=== PATIENT | male | born 1940 | race Caucasian/White ===

== ENCOUNTER 2016-09-29 13:02 | Inpatient (IN) | payer MEDICARE, BC ==
[~2016-09-29] VITALS: Ht 175.3 cm; Wt 112.7 kg
[2016-10-19] MEDS ORDERED: POTA4.25 PO (16:06)
[2016-10-19] MEDS ORDERED: ALLO100T PO (16:06)
[2016-10-19] MEDS ORDERED: AMLO2.5T PO (16:06)
[2016-10-19] MEDS ORDERED: LOVA20TA PO (16:06)
[2016-10-19] MEDS ORDERED: CITA10TA4 PO (16:06)
[2016-10-19] MEDS ORDERED: ASPI-110 PO (16:06)
[2016-10-19] MEDS ORDERED: ZOLP10TA3 PO (16:06)
[2016-11-04] MEDS ORDERED: SODIUM CHLORID 0.9% 500 ML IV SCH (06:45)
[2016-11-04] MEDS ORDERED: METOPROLOL TARTRATE 25 MG TAB PO PRN (06:45)
[2016-11-04] MEDS ORDERED: INSULIN HUMAN REGULAR 1,000 UNITS/10 ML VIAL SQ PRN (06:45)
[2016-11-04] MEDS ORDERED: LACTATED RINGER'S 1000 ML IV SCH (06:45)
--- NOTE | 2016-11-04 07:02 | HHI.DCPOC ---
Discharge Care Plan Diagnosis: (1) Status post total knee replacement, left (2) Primary localized osteoarthrosis, lower leg Your Health Problems Are: Difficulty with ADL Goals to Promote Your Health * To prevent worsening of your condition and complications * To maintain your health at the optimal level Directions to Meet Your Goals Take your medications as prescribed Follow your dietary instruction Follow activity as directed Keep your appointments as scheduled Take your immunizations and boosters as scheduled If your symptoms worsen call your PCP, if no PCP go to Urgent Care Center or Emergency Room Smoking is Dangerous to Your Health. Avoid second hand smoke Call the 24-hour hour crisis hotline for domestic abuse at Mario Hensley Nov 04, 2016 07:02
--- NOTE | 2016-11-04 07:02 | HHI.FF ---
Face to Face Verification Diagnosis: (1) Status post total knee replacement, left (2) Primary localized osteoarthrosis, lower leg Physical Therapy Gait training, Transfer training, bed to chair Knee: Total knee Left LE Weight Bearing: WB as tolerated Left LE Range of Motion: Active ROM Nursing Nursing: Lj teaching, Dressing changes Dressing Changes: Daily dressing change I have seen patient Mango Parker Jr on 11/04/16. My clinical findings support the need for the requested home health care services because: Limited ability to care for self High risk of falls I certify that my clinical findings support that this patient is homebound because: Post-op weakness Unsteady gait/balance Mario Hensley Nov 04, 2016 07:02
[2016-11-04] MEDS ORDERED: COMMODE 3-IN-11 MIS (07:03)
[2016-11-04] MEDS ORDERED: CPMMACHINE (07:03)
[2016-11-04] MEDS ORDERED: WALKER WHEELS/F1 MIS (07:03)
[2016-11-04 08:00] VITALS: BP 170/90; PULSE 84; RESP 20; TEMP 97.9; O2SAT 96
[2016-11-04] MEDS ORDERED: BUPIVACAINE LIPOSOME PF 1.3% 20 ML VIAL ONE (08:01)
[2016-11-04] MEDS ORDERED: DEXAMETHASONE SOD PHOS 20 MG/5 ML VIAL ONE (08:16)
[2016-11-04] MEDS ORDERED: SODIUM CHLORIDE 0.9% INJ 100 ML ONE ×2 (08:16→16:32)
[2016-11-04] MEDS ORDERED: SODIUM CHLOR 0.9% 250 ML INJ 250 ML ONE (08:16)
[2016-11-04] MEDS ORDERED: ceFAZolin INJ 1,000 MG VIAL ONE (08:16)
[2016-11-04] MEDS ORDERED: VANCOMYCIN HCL 1000 MG VIAL ONE (08:16)
[2016-11-04 08:32] LABS: AUTOMATED NEUTROPHIL # 6.7 TH/MM3 (1.8-7.7); BASOPHIL % 0.3 % (0.0-2.0); EOSINOPHIL % 0.1 % (0.0-4.0); HEMATOCRIT 43.5 % (39.0-51.0); HEMO FLAGS DIFF FINAL; LYMPH % 12.5 % (9.0-44.0); MEAN CELL VOLUME 95.3 FL (80.0-100.0); MEAN CORPUSCULAR HGB CONC 34.6 % (32.0-36.0); MONO % 6.3 % (0.0-8.0); NEUT % 80.8 % (16.0-70.0); PLATELET COUNT 220 TH/MM3 (150-450); RED BLOOD COUNT 4.56 MIL/MM3 (4.50-5.90); RED CELL DISTRIBUTION WIDTH 13.2 % (11.6-17.2); WHITE BLOOD COUNT 8.3 TH/MM3 (4.0-11.0)
[2016-11-04 08:47] LABS: ANION GAP 8 MEQ/L (5-15); AST (GOT) 13 U/L (15-37); BICARBONATE 27.7 MEQ/L (21.0-32.0); BLOOD UREA NITROGEN 14 MG/DL (7-18); CHLORIDE 103 MEQ/L (98-107); GLOMERULAR FILTRATION RATE 67 ML/MIN (>89); POTASSIUM 4.3 MEQ/L (3.5-5.1); SODIUM (NA) 139 MEQ/L (136-145)
[2016-11-04 08:50] LABS: ALKALINE PHOSPHATASE 80 U/L (45-117); ALT (GPT) 25 U/L (12-78); TOTAL BILIRUBIN ADULT 0.5 MG/DL (0.2-1.0)
[2016-11-04] MEDS ORDERED: MIDAZOLAM HCL 2 MG/2 ML VIAL ONE (09:08)
[2016-11-04] MEDS ORDERED: METOCLOPRAMIDE HCL 10 MG/2 ML VIAL ONE (09:08)
[2016-11-04] MEDS ORDERED: FAMOTIDINE 20 MG/2 ML VIAL ONE (09:08)
[2016-11-04] MEDS ORDERED: GENTAMICIN SULFATE 80 MG/2 ML VIAL ONE (09:17)
[2016-11-04] MEDS: POVIDONE IODINE 7.5% SCRUB 118 ML BOTTLE TOP SCH (09:30)
[2016-11-04] MEDS: TRANEXAMIC ACID IV SCH ×2 (09:30→10:28)
[2016-11-04] MEDS: SODIUM CHLORIDE 0.9% IV SCH ×2 (09:30→10:28)
[2016-11-04] MEDS ORDERED: VANCOMYCIN 1000 MG/NS 250 ML (for <70 kg) IV SCH ×2 (09:30)
[2016-11-04] MEDS ORDERED: ceFAZolin 2 GM PREMIX 50 ML IV SCH (09:30)
[2016-11-04] MEDS ORDERED: ACETAMINOPHEN 1000 MG/100 ML VIAL IV ONE (09:59)
[2016-11-04] MEDS ORDERED: DEXAMETHASONE SOD PHOS 20 MG/5 ML VIAL IV SCH (10:00)
[2016-11-04] MEDS: ROPIVACAINE PERI-ARTICULAR INJECTION. PERIART SCH ×10 (10:00→10:50)
--- NOTE | 2016-11-04 11:57 | PD.OP ---
cc: Valentino Rogers MD Operative Report Date of Surgery: Nov 04, 2016 Preoperative Diagnosis: Left knee severe osteoarthritis Postoperative Diagnosis: Same Procedure: Left total knee arthroplasty Anesthesia: Adductor canal block and general Surgeon: Valentino Rogers Tube Worker(s): SIDRA Amador The surgical procedure was assisted by my Advanced Registered Nurse Practitioner. My AIRCRAFT INSTRUMENT MECHANIC presence was necessary throughout this case for the manipulation and positioning of the surgical extremity. My AIRCRAFT INSTRUMENT MECHANIC was assisting me throughout the duration of this procedure. The skill set of an Advance Registered Nurse Practitioner was medically necessary to complete this procedure. During the surgical case, the surgical dressing maker was working at the back table and the Advance Registered Nurse Practitioner was directly assisting me. Operation and Findings: IMPLANTS: DePuy Attune: Patella: size 38. Femur, posterior stabilized size 8. Tibia, rotating platform size 7. Tibial insert, rotating platform, posterior stabilized size 6 mm thickness. ESTIMATED BLOOD LOSS: 250 cc TOURNIQUET TIME: 44 minutes at 300 mmHg pressure. JUSTIFICATION FOR PROCEDURE: The patient has end-stage osteoarthritis to the knee. There is an attached conservative measures pathway form in the chart that describes the nonoperative measures that were undertaken prior to consideration of surgical management. The patient understood the risks and benefits of surgical management. See my office notes for further details PROCEDURE: The patient was brought back to the operative theatre. Adequate anesthesia was obtained. The patient received intravenous vancomycin and Ancef. The lower extremity was prepped and draped in the usual sterile fashion.The leg was exsanguinated, the tourniquet was raised. A standard anterior incision was performed followed by medial parapatellar arthrotomy was performed. End-stage arthritis was identified. Osteotomy of the patella was performed. We drilled holes for the patella. We trialed the patella component. We placed an intramedullary guide into the distal femur. We ultimately resected 14 mm off of the distal femur in 5 degrees of valgus. The remnants of the ACL and PCL were resected. Osteotomy of the proximal tibia was performed, resecting 5 mm off of the medial side. This was done with 3 degrees of posterior slope using an extramedullary guide. The distal end of the guide was placed in the mid aspect of the ankle. The femur was sized, and four chamfer cuts were completed in 3 of external rotation. We then cut the central box in the distal femur to replace the PCL. We resected the remnants of the menisci and removed osteophytes off of the femur and tibia. We then trialed the knee. We punched the tibia for the keel, and then used standard technique to cement in components. Excess cement was removed. We trialed the knee again and the final polyethylene thickness was chosen to provide extension to 0 degrees, and flexion of 140 degrees to gravity. The ligaments were appropriately balanced. Lateral release was necessary to obtain excellent patellofemoral tracking. The tourniquet was released and adequate hemostasis was obtained. An intra- articular injection of a ropivacaine cocktail was injected. The posterior knee was inspected for excess cement, which was removed. The final polyethylene was put into position after thorough irrigation. We then closed deep fascia with a #2 Stratafix followed by skin with 2-0 Vicryl followed by cosmo. Postop plan is to weight-bear as tolerated. DVT prophylaxis will be performed with Anne Marie, TEDDY dumont, early mobilization, and Lovenox followed by aspirin. Valentino Rogers MD Nov 04, 2016 11:57
[2016-11-04] MEDS ORDERED: ENOX40P SQ (11:58)
[2016-11-04] MEDS ORDERED: NORC5TAB PO (11:58)
[2016-11-04] MEDS ORDERED: ASPI325T PO (11:58)
[2016-11-04] MEDS ORDERED: ONDANSETRON HCL 4 MG/2 ML VIAL IVP PRN (12:00)
[2016-11-04] MEDS ORDERED: ALUMINUM/MAGNESIUM/SIMETH 30 ML CUP PO PRN (12:00)
[2016-11-04] MEDS ORDERED: MAGNESIUM HYDROXIDE SUSP 30 ML CUP PO PRN (12:00)
[2016-11-04] MEDS ORDERED: diphenhydrAMINE HCL 50 MG/ML VIAL IV PRN (12:00)
[2016-11-04] MEDS ORDERED: LACTATED RINGER'S 1000 ML INJ 1,000 ML IV ONE (12:00)
[2016-11-04] MEDS ORDERED: ONDANSETRON HCL 4 MG/2 ML VIAL IV PUSH ONE (12:00)
[2016-11-04] MEDS ORDERED: NALOXONE HCL 0.4 MG/ML AMP IV PRN (12:00)
[2016-11-04] MEDS ORDERED: SODIUM CHLORIDE 0.9% FLUSH 5 ML FLUSH IVF PRN (12:00)
[2016-11-04] MEDS ORDERED: ZOLPIDEM TARTRATE 5 MG TAB PO PRN (12:00)
[2016-11-04] MEDS ORDERED: BISACODYL 10 MG SUPP PR PRN (12:00)
[2016-11-04] MEDS ORDERED: MORPHINE SULFATE 4 MG/ML INJ IV PUSH PRN (12:00)
[2016-11-04] MEDS ORDERED: Post-op Orders (for Pharmacy) MISC XX ONE (12:00)
[2016-11-04] MEDS ORDERED: PROPOFOL 200 MG/20 ML AMP IV ONE (12:00)
[2016-11-04] MEDS ORDERED: fentaNYL CITRATE 250 MCG/5 ML AMP ONE (12:25)
[2016-11-04] MEDS ORDERED: *morphine SULFATE 8 MG/ML PERIprocedure ONLY ONE ×2 (12:26→12:30)
[2016-11-04] MEDS ORDERED: PILL SPLITTER OTHER PRN (12:30)
[2016-11-04] MEDS ORDERED: *ENALAPRILAT 1.25 MG/ML VIAL PERIprocedural Use ONLY ONE ×2 (12:33→12:54)
[2016-11-04] MEDS: SODIUM CHLOR 0.9% 1000 ML INJ 1,000 ML IV SCH ×2 (13:00→20:39)
[2016-11-04] MEDS ORDERED: TRANEXAMIC ACID INJ 1,107 MG in SODIUM CHLORIDE 0.9% INJ 100 ML IV SCH (13:00)
--- NOTE | 2016-11-04 13:54 | RADRPT ---
EXAM DATE/TIME: 11/04/2016 12:56 [facility] COMPARISON: No previous studies available for comparison. INDICATIONS : Post-op total left knee arthroplasty. MEDICAL HISTORY : Hypertension. SURGICAL HISTORY : Arthroscopy. Left shoulder surgery. ENCOUNTER: Initial ACUITY: 1 day PAIN SCORE: 0/10 LOCATION: Left knee. FINDINGS: AP and lateral views of the left knee demonstrate changes consistent with recent total knee arthropla sty with metallic hardware in place in the distal femur and proximal tibia. There is a radiolucent pa tellar component. Skin cosmo are present anteriorly. There is soft tissue gas present, as expected. CONCLUSION: Expected findings are present following recent total knee arthroplasty. Mango Duke MD on November 04, 2016 at 13:52 Board Certified Radiologist. This report was verified electronically.
[2016-11-04 17:33] VITALS: BP 145/82; PULSE 76; RESP 18; TEMP 96.6; O2SAT 93
[2016-11-04 20:08] VITALS: BP 115/68; PULSE 80; RESP 21; TEMP 97.8; O2SAT 96
[2016-11-04] MEDS: SODIUM CHLORIDE 0.9% FLUSH 5 ML FLUSH IVF SCH (20:40)
[2016-11-04] MEDS: ACETAMINOPHEN/HYDROcodone 325 MG/5 MG TAB PO PRN (20:40)
[2016-11-04] MEDS ORDERED: CITALOPRAM HYDROBROMIDE 20 MG TAB PO SCH (21:00)
[2016-11-04] MEDS ORDERED: PRAVASTATIN SOD 20 MG TAB PO SCH (21:00)
[2016-11-04] MEDS ORDERED: ZOLPIDEM TARTRATE 10 MG TAB PO PRN (21:00)
[2016-11-04] MEDS ORDERED: ALLOPURINOL 100 MG TAB PO SCH (21:00)
[2016-11-05 00:11] VITALS: BP 112/67; PULSE 77; RESP 20; TEMP 98.7; O2SAT 97
[2016-11-05] MEDS: ACETAMINOPHEN/HYDROcodone 325 MG/5 MG TAB PO PRN ×4 (02:06→15:22)
[2016-11-05 04:08] VITALS: BP 138/78; PULSE 80; RESP 20; TEMP 97.1; O2SAT 96
[2016-11-05 05:08] LABS: HEMATOCRIT 37.9 % (39.0-51.0); MEAN CELL VOLUME 97.2 FL (80.0-100.0); MEAN CORPUSCULAR HEMOGLOBIN 32.5 PG (27.0-34.0); MEAN CORPUSCULAR HGB CONC 33.4 % (32.0-36.0); PLATELET COUNT 183 TH/MM3 (150-450); RED CELL DISTRIBUTION WIDTH 13.7 % (11.6-17.2); REVIEW FLAG FINAL; WHITE BLOOD COUNT 10.7 TH/MM3 (4.0-11.0)
[2016-11-05] MEDS: SODIUM CHLOR 0.9% 1000 ML INJ 1,000 ML IV SCH ×2 (07:34→11:35)
[2016-11-05] MEDS ORDERED: DEXAMETHASONE SOD PHOS 20 MG/5 ML VIAL IV ONE (07:45)
[2016-11-05 08:08] VITALS: BP 169/103; PULSE 82; RESP 20; TEMP 99; O2SAT 96
[2016-11-05] MEDS ORDERED: amLODIPine BESYLATE 5 MG TAB PO SCH (09:00)
[2016-11-05] MEDS: SODIUM CHLORIDE 0.9% FLUSH 5 ML FLUSH IVF SCH (09:00)
[2016-11-05] MEDS: POVIDONE IODINE 7.5% SCRUB 118 ML BOTTLE TOP SCH (09:30)
[2016-11-05] MEDS ORDERED: ENOXAPARIN SODIUM 40 MG/0.4 ML SYRINGE SQ SCH (11:00)
[2016-11-05 12:15] VITALS: BP 189/90; PULSE 89; RESP 20; TEMP 98.4; O2SAT 97
--- NOTE | 2016-11-05 12:32 | PD.ORT.PN ---
Subjective Post Op Day #: 1 Subjective Remarks The patient is OOB in chair with minimal pain. Patient is requesting to go home today with home health. Family at bedside. Objective Vitals Vital Signs Date Time Temp Pulse Resp B/P Pulse Ox O2 Delivery O2 Flow Rate FiO2 11/05/16 08:08 99.0 82 20 169/103 96 11/05/16 04:08 97.1 80 20 138/78 96 11/05/16 00:11 98.7 77 20 112/67 97 11/04/16 20:08 97.8 80 21 115/68 96 11/04/16 19:07 Room Air 11/04/16 17:33 96.6 76 18 145/82 93 11/04/16 16:55 Room Air 11/04/16 16:30 98.5 70 17 159/89 96 Room Air 11/04/16 16:00 78 17 152/86 95 Room Air 11/04/16 15:30 77 17 119/79 97 Nasal Cannula 2 11/04/16 15:00 76 17 140/87 97 Nasal Cannula 2 11/04/16 14:45 70 17 159/89 98 Nasal Cannula 2 11/04/16 14:00 83 17 147/80 98 Nasal Cannula 2 11/04/16 13:30 87 17 143/86 98 Nasal Cannula 2 11/04/16 13:15 85 16 160/90 98 Nasal Cannula 2 11/04/16 13:00 87 16 165/87 98 Nasal Cannula 4 11/04/16 12:45 84 16 175/96 98 Nasal Cannula 4 11/04/16 12:30 81 15 174/105 100 Nasal Cannula 4 I/O 11/04/16 11/04/16 11/04/16 11/05/16 11/05/16 11/05/16 07:00 15:00 23:00 07:00 15:00 23:00 Intake Total 2000 ml 1325 ml 1111 ml 328 ml Output Total 550 ml 300 ml 300 ml Balance 1450 ml 1025 ml 811 ml 328 ml Intake Oral 360 ml 240 ml IV Total 600 ml 965 ml 871 ml 328 ml Other 1400 ml Output Urine Total 350 ml 300 ml 300 ml Estimated Blood Loss 200 ml # Bowel Movements 0 0 Result Diagram: 11/05/16 0442 11/04/16 0810 Procedures Left TKA Objective Remarks The patient's dressing was changed with scant serosanguineous drainage. Incision is well approximated with surgical clips intact. No redness or s/s of infection. EHL/TA/G intact. 2+ pedal pulse. Calf is soft and nontender. Mild swelling. + SILT. Assessment & Plan Ortho Post Op Day #: 1 Problem List: Assessment and Plan POD #1: Left TKA 1. WBAT LLE 2. Lovenox for DVT prophylaxis 3. Ice to the left knee PRN 4. Stable for discharge home with home health today. Mario Hensley Nov 05, 2016 12:32
[2016-11-05 15:17] VITALS: BP 164/86
[2016-11-05] MEDS ORDERED: MULTIVITAMINS/MINERALS THERAPEUTIC TAB PO SCH (21:00)
[2016-11-05] MEDS ORDERED: DOCUSATE SODIUM 100 MG CAP PO SCH (21:00)
[2016-11-06] MEDS ORDERED: POTASSIUM CITRATE 10 MEQ PO SCH (09:00)
--- NOTE | 2016-11-08 21:33 | HHI.DS ---
Discharge Summary Admission Date Nov 04, 2016 at 06:12 Discharge Date: Nov 05, 2016 Admitting Diagnosis Primary localized OA, lower leg Status post total knee replacement, left Diagnosis: (1) Primary localized osteoarthrosis, lower leg Diagnosis: Principal (2) Status post total knee replacement, left Diagnosis: Principal Procedures Left TKA Brief History This is a 76 year old male patient with severe OA of the left knee CBC/BMP: 11/05/16 0442 11/04/16 0810 PE at Discharge The patient's dressing was changed with scant serosanguineous drainage. Incision is well approximated with surgical clips intact. No redness or s/s of infection. EHL/TA/G intact. 2+ pedal pulse. Calf is soft and nontender. Mild swelling. + SILT. Hospital Course The patient was admitted to the hospital for severe OA of the left knee to have a left TKA. The patient's surgery went well with no complications. The patient is WBAT on the right LE. The patient is on a regular diet. The patient is on blood thinners for DVT prophylaxis. The patient was discharged home with home health and will f/u with Dr. Rogers in 1-2 weeks. Pt Condition on Discharge: Stable Discharge Disposition: Disch w/ Home Health Serv Discharge Instructions Diet Instructions: As Tolerated, No Restrictions Activities You Can Perform: Weight Bearing as Tay[place] Activities to Avoid: Strenuous Activity Follow up Referrals: Orthopedics with Valentino Rogers MD New Medications: Aspirin (Aspirin) 325 Mg Tab 325 MG PO DAILY Start Aspirin after Lovenox is completed. Prevent Blood Clot # 30 Ref 0 TAB Commode 3-in-1 (Commode 3-in-1) 1 Mis Mis 1 EA .ROUTE DIRECTED #1 Ref 0 EA CPM-Continuous Passive Motion Machine (CPM-Continuous Passive Motion Machine) 1 Ea Device 1 EA .ROUTE DIRECTED #1 Ref 0 EA Enoxaparin Inj (Lovenox Inj) 40 Mg/0.4 Ml Syr 40 MG SQ DAILY Start Aspirin after Lovenox is completed. Blood Clot Prevention # 10 Ref 0 SYRINGE Hydrocodone-Acetaminophen ([place]) 5-325 mg Tab 1-2 TAB PO Q4H PRN PAIN #60 Ref 0 TAB Walker with Front Wheels (Walker with Front Wheels) 1 Mis Mis 1 EA .ROUTE DIRECTED #1 Ref 0 EA Continued Medications: Allopurinol (Allopurinol) 100 Mg Tab 150 MG PO HS Gout #30 Ref 0 TAB Amlodipine (Amlodipine) 2.5 Mg Tab 2.5 MG PO DAILY Blood Pressure Management #30 Ref 0 TAB Citalopram (Citalopram) 10 Mg Tab 10 MG PO HS Control Depression #30 Ref 0 TAB Lovastatin (Lovastatin) 20 Mg Tab 20 MG PO HS Cholesterol Management #30 Ref 0 TAB Potassium Citrate ER (Potassium Citrate ER) 15 Meq Tab 10 MEQ PO EVERY OTHER DAY Zolpidem (Zolpidem) 10 Mg Tab 10 MG PO HS PRN INSOMNIA Ref 0 TAB Discontinued Medications: Aspirin DR (Aspirin 81) 81 Mg Tabdr 81 MG PO DAILY Ref 0 TAB Mario Hensley Nov 08, 2016 21:33
== END 2016-11-05 15:52 | disposition home health service (06) | DRG 470 ==
LOC: HSDI 11-04 06:12 → N06A 11-04 17:01
PROVIDERS: ADMIT Orthopaedic Surgery; ATTEND Orthopaedic Surgery
PROC: 3E0T3CZ (ICD-10-PCS; 2016-11-04)
PROC: 0SRD0J9 Replacement of Left Knee Joint with Synthetic Substitute, Cemented, Open Approach (ICD-10-PCS; principal; 2016-11-04 10:03)
DX: M17.12 Unilateral primary osteoarthritis, left knee (principal)
CPT/HCPCS: 73560; 80053; 85025; 85027; 86850; 86900; 86901; 94150; C1776; C9290; J0131; J0171; J0690; J0735; J1100; J1580; J1650; J1885; J2250; J2270; J2405; J2765; J2795; J3010; J3370; J7030; J7050; J7120; L1830

== ENCOUNTER → 2016-10-19 | Outpatient (CLI) | payer MEDICARE, BC, OTHER ==
[~2016-10-19] MED LIST: ALLO100T PO; ALLO300T2 PO; AMBI10TA PO; AMLO2.5T PO; ASPI-110 PO; ASPI325T PO; ASPI81TA82 PO; CITA10TA4 PO; COMMODE 3-IN-11 MIS; CPMMACHINE; ENOX40P SQ; LISI-363 PO; LORTA5 PO; LOVA1TAB47 PO; LOVA20TA PO; NORC5TAB PO; POTA1080 PO; POTA4.25 PO; WALKER WHEELS/F1 MIS; ZOLP10TA3 PO
[2016-10-19 08:55] LABS: BLOOD, URINE NEG (NEG); GLUCOSE,URINE NEG (NEG); KETONE, URINE NEG (NEG); NITRITE,URINE NEG (NEG); SQUAMOUS EPITHELIAL CELL URINE <1 /hpf (0-5); URINE COLOR LIGHT-YELLOW (YELLW/STRAW)
[2016-10-19 08:56] LABS: COMMENT (UR) CULT NOT INDICATED; CULTURE IF INDICATED CULT NOT INDICATED
[2016-10-19 08:57] LABS: APTT (PATIENT) 27.8 SEC (24.3-30.1); PROTHROMBIN TIME - PATIENT 10.5 SEC (9.8-11.6)
--- NOTE | 2016-10-19 09:43 | RADRPT ---
EXAM DATE/TIME: 10/19/2016 08:58 [facility] COMPARISON: CHEST PA & LAT, September 22, 2014, 11:21. INDICATIONS: Evaluate for pneumonia, pneumothorax, and communicable disease. Pre-op for total left knee arthropla sty scheduled for November 04, 2016. MEDICAL HISTORY: Hypertension. SURGICAL HISTORY: None. Left shoulder surgery. Left knee arthroscopy. ENCOUNTER: Initial ACUITY: 1 day PAIN SCORE: 7/10 LOCATION: Chest FINDINGS: Heart is [id number]. Pulmonary vascularity is normal. Very minimal parenchymal changes are seen in le ft base. Right lung is clear. CONCLUSION: 1. Compensated cardiomegaly. 2. Minimal parenchymal changes in left base, stable in the interval. Geovani Underwood MD FACR on October 19, 2016 at 9:17 Board Certified Radiologist. This report was verified electronically.
== END ==
LOC: CPRE 08:01
PROVIDERS: ATTEND Orthopaedic Surgery
DX: Z01.811 Encounter for preprocedural respiratory examination (principal); Z01.812 Encounter for preprocedural laboratory examination; M79.609 Pain in unspecified limb; M25.50 Pain in unspecified joint; Z96.60 Presence of unspecified orthopedic joint implant
CPT/HCPCS: 36415; 71020; 81001; 85610; 85652; 85730

== ENCOUNTER 2017-05-05 10:00 | Inpatient (IN) | payer MEDICARE, BC ==
[~2017-05-05] VITALS: Ht 172.7 cm; Wt 113.5 kg
[~2017-05-05 10:00] MED LIST changes: -ALLO300T2 PO; -AMBI10TA PO; -AMLO2.5T PO; -ASPI-110 PO; -ASPI325T PO; -ASPI81TA82 PO; -COMMODE 3-IN-11 MIS; -CPMMACHINE; -ENOX40P SQ; -LISI-363 PO; -LORTA5 PO; -LOVA1TAB47 PO; -NORC5TAB PO; -POTA1080 PO
[2017-05-18] MEDS ORDERED: ASPI-110 PO (15:42)
[2017-05-18] MEDS ORDERED: CARV6.252 PO (15:42)
[2017-05-19] MEDS ORDERED: SODIUM CHLORID 0.9% 500 ML IV PRN (08:15)
[2017-05-19] MEDS ORDERED: ceFAZolin 2 GM PREMIX 50 ML IV SCH (08:15)
[2017-05-19] MEDS ORDERED: POVIDONE IODINE 5% (ANTISEPSIS KIT) 4 APPLICATIONS EACH NARE PRN (08:15)
[2017-05-19] MEDS ORDERED: CHLORHEXIDINE GLUCONATE 2 % 1 PACK (2 CLOTHS) TOPICAL PRN (08:15)
[2017-05-19] MEDS ORDERED: DEXAMETHASONE SOD PHOS 20 MG/5 ML VIAL IV SCH (08:15)
[2017-05-19] MEDS ORDERED: INSULIN HUMAN REGULAR 1,000 UNITS/10 ML VIAL SQ PRN (08:15)
[2017-05-19] MEDS ORDERED: VANCOMYCIN 1000 MG/NS 250 ML (for <70 kg) IV SCH ×2 (08:15)
[2017-05-19] MEDS ORDERED: LACTATED RINGER'S 1000 ML IV PRN (08:15)
[2017-05-19] MEDS ORDERED: POVIDONE IODINE 7.5% SCRUB 118 ML BOTTLE TOPICAL SCH (08:15)
[2017-05-19] MEDS ORDERED: METOPROLOL TARTRATE 25 MG TAB PO PRN (08:15)
[2017-05-19] MEDS ORDERED: ROPIVACAINE PERI-ARTICULAR INJECTION. P-ARTICULR SCH ×5 (09:00)
[2017-05-19] MEDS ORDERED: SODIUM CHLORIDE 0.9% IV SCH ×2 (09:00→14:15)
[2017-05-19] MEDS ORDERED: TRANEXAMIC ACID IV SCH ×2 (09:00→14:15)
[2017-05-19] MEDS ORDERED: FAMOTIDINE 20 MG/2 ML VIAL ONE (10:55)
[2017-05-19] MEDS ORDERED: ACETAMINOPHEN 1000 MG/100 ML 100 ML IV ONE (10:55)
[2017-05-19] MEDS ORDERED: GENTAMICIN SULFATE 80 MG/2 ML VIAL ONE (11:04)
[2017-05-19] MEDS ORDERED: BUPIVACAINE LIPOSOME PF 1.3% 20 ML VIAL ONE (11:40)
[2017-05-19] MEDS ORDERED: MIDAZOLAM HCL 2 MG/2 ML VIAL IV ONE (12:00)
[2017-05-19] MEDS ORDERED: NEOSTIGMINE 3 MG/3 ML SYR IV ONE (12:00)
[2017-05-19] MEDS ORDERED: LACTATED RINGER'S 1000 ML INJ 1,000 ML IV ONE (12:00)
[2017-05-19] MEDS ORDERED: ROCURONIUM INJ 50 MG/5 ML SYRINGE IV PUSH ONE (12:00)
[2017-05-19] MEDS ORDERED: GLYCOPYRROLATE 0.2 MG/ML VIAL IV ONE (12:00)
[2017-05-19] MEDS ORDERED: PROPOFOL 200 MG/20 ML AMP IV ONE (12:00)
[2017-05-19] MEDS ORDERED: LIDOCAINE HCL 1% PF 5 ML AMPULE OTHER ONE (12:00)
[2017-05-19] MEDS ORDERED: PHENYLEPH/NS 1000 MCG/10 ML SYR IV ONE (12:00)
[2017-05-19] MEDS ORDERED: ONDANSETRON HCL 4 MG/2 ML VIAL IV PUSH ONE (12:00)
[2017-05-19] MEDS ORDERED: ACETAMINOPHEN/HYDROcodone 325 MG/5 MG TAB PO PRN ×2 (13:15)
[2017-05-19] MEDS ORDERED: Post-op Orders (for Pharmacy) MISC XX ONE (13:15)
[2017-05-19] MEDS ORDERED: SODIUM CHLORIDE 0.9% FLUSH 5 ML FLUSH IVF PRN (13:15)
[2017-05-19] MEDS ORDERED: ALUMINUM/MAGNESIUM/SIMETH 30 ML CUP PO PRN (13:15)
[2017-05-19] MEDS ORDERED: ZOLPIDEM TARTRATE 5 MG TAB PO PRN (13:15)
[2017-05-19] MEDS ORDERED: MORPHINE SULFATE 4 MG/ML INJ IV PUSH PRN (13:15)
[2017-05-19] MEDS ORDERED: NALOXONE HCL 0.4 MG/ML AMP IV PRN (13:15)
[2017-05-19] MEDS ORDERED: diphenhydrAMINE HCL 50 MG/ML VIAL IV PRN (13:15)
[2017-05-19] MEDS ORDERED: MAGNESIUM HYDROXIDE SUSP 30 ML CUP PO PRN (13:15)
[2017-05-19] MEDS ORDERED: BISACODYL 10 MG SUPP RECTAL PRN (13:15)
--- NOTE | 2017-05-19 13:17 | PD.OP ---
cc: Valentino Rogers MD Operative Report Date of Surgery: May 19, 2017 Preoperative Diagnosis: Right knee severe osteoarthritis Postoperative Diagnosis: Same Procedure: Right total knee arthroplasty Anesthesia: Adductor canal block and general Surgeon: Valentino Rogers Coal Loader(s): SIDAR Amador The surgical procedure was assisted by my Advanced Registered Nurse Practitioner. My SOLAR INSTALLATION HELPER presence was necessary throughout this case for the manipulation and positioning of the surgical extremity. My SOLAR INSTALLATION HELPER was assisting me throughout the duration of this procedure. The skill set of an Advance Registered Nurse Practitioner was medically necessary to complete this procedure. During the surgical case, the robotics technician was working at the back table and the Advance Registered Nurse Practitioner was directly assisting me. Operation and Findings: IMPLANTS: DePuy Attune: Patella: size 38. Femur, posterior stabilized size 8. Tibia, rotating platform size 7. Tibial insert, rotating platform, posterior stabilized size 5 mm thickness. ESTIMATED BLOOD LOSS: 150 cc TOURNIQUET TIME: 42 minutes at 250 mmHg pressure. JUSTIFICATION FOR PROCEDURE: The patient has end-stage osteoarthritis to the knee. There is an attached conservative measures pathway form in the chart that describes the nonoperative measures that were undertaken prior to consideration of surgical management. The patient understood the risks and benefits of surgical management. See my office notes for further details PROCEDURE: The patient was brought back to the operative theatre. Adequate anesthesia was obtained. The patient received intravenous vancomycin and Ancef. The lower extremity was prepped and draped in the usual sterile fashion.The leg was exsanguinated, the tourniquet was raised. A standard anterior incision was performed followed by medial parapatellar arthrotomy was performed. End-stage arthritis was identified. Osteotomy of the patella was performed. We drilled holes for the patella. We trialed the patella component. We placed an intramedullary guide into the distal femur. We ultimately resected 14 mm off of the distal femur in 5 degrees of valgus. The remnants of the ACL and PCL were resected. Osteotomy of the proximal tibia was performed, resecting 5 mm off of the medial side. This was done with 3 degrees of posterior slope using an extramedullary guide. The distal end of the guide was placed in the mid aspect of the ankle. The femur was sized, and four chamfer cuts were completed in 3 of external rotation. We then cut the central box in the distal femur to replace the PCL. We resected the remnants of the menisci and removed osteophytes off of the femur and tibia. We then trialed the knee. We punched the tibia for the keel, and then used standard technique to cement in components. Excess cement was removed. We trialed the knee again and the final polyethylene thickness was chosen to provide extension to 0 degrees, and flexion of 140 degrees to gravity. The ligaments were appropriately balanced. Lateral release was necessary to obtain excellent patellofemoral tracking. The tourniquet was released and adequate hemostasis was obtained. An intra- articular injection of a ropivacaine cocktail was injected. The posterior knee was inspected for excess cement, which was removed. The final polyethylene was put into position after thorough irrigation. We then closed deep fascia with a #2 Stratafix followed by skin with 2-0 Vicryl followed by cosmo. Postop plan is to weight-bear as tolerated. DVT prophylaxis will be performed with Anne Marie, TEDDY dumont, early mobilization, and Lovenox followed by aspirin. Valentino Rogers MD May 19, 2017 13:17
[2017-05-19] MEDS ORDERED: NORC5TAB PO (13:18)
[2017-05-19] MEDS ORDERED: ENOX40P SQ (13:18)
[2017-05-19] MEDS ORDERED: ASPI325T PO (13:18)
[2017-05-19] MEDS ORDERED: DO NOT ADM ANY ANTICOAGULANT DRUGS PRN (13:45)
[2017-05-19] MEDS ORDERED: SODIUM CHLOR 0.9% 1000 ML INJ 1,000 ML IV SCH (14:00)
[2017-05-19] MEDS ORDERED: *morphine SULFATE 8 MG/ML PERIprocedure ONLY ONE ×3 (14:02→15:34)
[2017-05-19] MEDS ORDERED: *ONDANSETRON 4 MG VIAL PERIprocedural Use ONLY ONE (14:29)
--- NOTE | 2017-05-19 14:33 | PD.CONS ---
HPI Service [facility] Consult Requested By Dr. Valentino Rogers Reason for Consult Medical Management Primary Care Physician Magdalena Cormier MD Diagnoses: History of Present Illness This is a pleasant 77 y/o Male who was brought in by his Primary Orthopedic training and documentation specialist doctor Valentino Rogers for Right Total Knee arthroplasty, as we know he has Hypertension, Hyperlipidemia, Depression and anxiety disorder Multiple Orthopedic issues also Lumbar DJD, Gout. Seen in Recovery room status post surgery, no complaint discussed with nurse. Review of Systems Constitutional: DENIES: Fever, Chills, Change in appetite Endocrine: DENIES: Heat/cold intolerance Eyes: DENIES: Blurred vision, Eye pain Musculoskeletal: COMPLAINS OF: Joint pain Except as stated in HPI: all other systems reviewed are Neg Past Family Social History Allergies: Coded Allergies: ibuprofen (Unverified Allergy, Intermediate, PATIENT STATES H PYLORI, 05/19) PATIENT DOES NOT WANT TO TAKE ANY ANTI-INFLAMMATORIES INCLUDING TORADOL NSAIDS (Non-Steroidal Anti-Inflamma (Verified Allergy, Mild, 05/19/17) HPYLORI HISTORY PT DOES NOT WANT NSAIDS Past Medical History Hypertension Hyperlipidemia OA DJD lumbar spine Depression/Anxiety disorder Gout Prostate Cancer with status post Radiation therapy Urolithiasis Past Surgical History Left Shoulder Surgery Left Knee arthroscopic surgery in the past and posterior Left Knee total Arthroplasty this year Reported Medications Reported Meds & Active Scripts Active Aspirin 325 Mg Tab 325 Mg PO DAILY Start Aspirin after Lovenox is completed. Lovenox Inj (Enoxaparin Sodium) 40 Mg/0.4 Ml Syr 40 Mg SQ DAILY Start Aspirin after Lovenox is completed. [place] (Hydrocodone-Acetaminophen) 5-325 mg Tab 1-2 Tab PO Q4H PRN Walker with Front Wheels (Device) 1 Mis Mis 1 Ea .ROUTE DIRECTED Reported Aspirin 81 (Aspirin) 81 Mg Tabdr 81 Mg PO DAILY Carvedilol 6.25 Mg Tab 6.25 Mg PO BID Zolpidem (Zolpidem Tartrate) 10 Mg Tab 10 Mg PO HS PRN Potassium Citrate ER 15 Meq Tab 10 Meq PO EVERY OTHER DAY Lovastatin 20 Mg Tab 20 Mg PO HS Citalopram (Citalopram Hydrobromide) 10 Mg Tab 10 Mg PO HS Allopurinol 100 Mg Tab 50 Mg PO HS Active Ordered Medications Current Medications Medications (Trade) Dose Ordered Sig/Denise Route Start Time Stop Time Status Last Admin Lactated Ringer's 1,000 ml @ 30 mls/hr Q24H PRN IV 05/19/17 08:15 05/22/17 08:14 05/19/17 08:30 Sodium Chloride 500 ml @ 30 mls/hr [id number] PRN IV 05/19/17 08:15 05/22/17 08:14 (Lopressor) 25 mg MAPPING ENGINEER PRN PO 05/19/17 08:15 05/22/17 08:14 (Betadine 5% Antisepsis Kit) 1 applic MAPPING ENGINEER PRN EACH NARE 05/19/17 08:15 05/22/17 08:14 05/19/17 08:40 (Chlorhexidine 2% Cloth) 3 pack MAPPING ENGINEER PRN TOPICAL 05/19/17 08:15 05/22/17 08:14 05/19/17 08:00 (NovoLIN R INJ) See Protocol Table ... MAPPING ENGINEER PRN SQ 05/19/17 08:15 05/22/17 08:14 (Betadine 7.5% Scrub) 1 applic ONCE TOPICAL 05/19/17 08:15 05/22/17 08:14 05/19/17 08:40 Cefazolin Sodium/ Dextrose 50 ml @ 100 mls/hr MAPPING ENGINEER IV 05/19/17 08:15 05/22/17 08:14 05/19/17 09:43 Vancomycin HCl 1000 mg/Sodium Chloride 250 ml @ 250 mls/hr MAPPING ENGINEER IV 05/19/17 08:15 05/22/17 08:14 05/19/17 10:04 Tranexamic Acid 1120 mg/Sodium Chloride 111.2 ml @ 200 mls/hr ONCE IV 05/19/17 09:00 05/20/17 15:00 Ropivacaine 24.63 ml/Ketorolac Tromethamine 30 mg/Epinephrine HCl 0.5 mg/ Clonidine 80 mcg/ Sodium Chloride 100 ml @ 200 mls/hr ONCE P-ARTICULR 05/19/17 09:00 05/20/17 15:00 (Decadron Inj) 10 mg MAPPING ENGINEER IV 05/19/17 08:15 05/20/17 08:14 05/19/17 09:37 (Zyloprim) 50 mg HS PO 05/19/17 21:00 (Coreg) 6.25 mg BID PO 05/19/17 21:00 (CeleXA) 10 mg HS PO 05/19/17 21:00 (Pravachol) 20 mg HS PO 05/19/17 21:00 (Ambien) 10 mg HS PRN PO 05/19/17 13:15 UNV Patient Own Medication PT OWN MED: POTASS... EVERY OTHER DAY PO 05/21/17 09:00 Sodium Chloride 1,000 ml @ 100 mls/hr Q10H IV 05/19/17 14:00 (NS Flush) 2 ml UNSCH PRN IVF 05/19/17 13:15 (NS Flush) 2 ml BID IVF 05/19/17 21:00 Cefazolin Sodium 1000 mg/Sodium Chloride 100 ml @ 200 mls/hr Q6H IV 05/19/17 16:00 05/20/17 04:29 (Decadron Inj) 10 mg ONCE ONCE IV 05/20/17 14:30 05/20/17 14:31 (Lovenox Inj) 40 mg Q24H SQ 05/20/17 13:00 05/29/17 13:01 ([place] 5-325 Mg) 1 tab Q4H PRN PO 05/19/17 13:15 ([place] 5-325 Mg) 2 tab Q4H PRN PO 05/19/17 13:15 Tranexamic Acid 1120 mg/Sodium Chloride 111.2 ml @ 200 mls/hr UNSCH X1 IV 05/19/17 14:15 05/19/17 20:15 (Theragran M Tab) 1 tab BID PO 05/20/17 21:00 07/19/17 20:59 (Zofran Inj) 4 mg Q6H PRN IVP 05/19/17 13:15 (Colace) 100 mg BID PO 05/20/17 21:00 (Mag-Al Plus Susp Liq) 30 ml Q6H PRN PO 05/19/17 13:15 (Ambien) 5 mg HS PRN PO 05/19/17 13:15 UNV (Dulcolax Supp) 10 mg DAILY PRN RECTAL 05/19/17 13:15 (Milk Of Magnesia Liq) 30 ml DAILY PRN PO 05/19/17 13:15 (Narcan Inj) 0.4 mg UNSCH PRN IV 05/19/17 13:15 (Benadryl Inj) 25 mg Q6H PRN IV 05/19/17 13:15 (Morphine Inj) 2 mg Q3H PRN IV PUSH 05/19/17 13:15 Miscellaneous Information ALL NURSING DEPARTME... UNSCH PRN .XX 05/19/17 13:45 05/20/17 13:44 Family History Father with CAD Mother status post Stroke. Social History Lives with his , does not smoke but drinks scotch daily three drinks daily. Physical Exam Vital Signs Vital Signs Date Time Temp Pulse Resp B/P (MAP) Pulse Ox O2 Delivery O2 Flow Rate FiO2 05/19/17 08:27 99.5 80 20 183/98 (126) 96 Physical Exam GENERAL: Obesity, well-developed patient, in no apparent distress. SKIN: No rashes, ecchymoses or lesions. Cool and dry. HEAD: Atraumatic. Normocephalic. No temporal or scalp tenderness. EYES: Pupils equal round and reactive. Extraocular motions intact. No scleral icterus. No injection or drainage. ENT: Nose without bleeding, purulent drainage or septal hematoma. Throat without erythema, tonsillar hypertrophy or exudate. Uvula midline. Airway patent. NECK: Trachea midline. No JVD or lymphadenopathy. Supple, nontender, no meningeal signs. CARDIOVASCULAR: Regular rate and rhythm without murmurs, gallops, or rubs. RESPIRATORY: Clear to auscultation. Breath sounds equal bilaterally. No wheezes , rales, or rhonchi. GASTROINTESTINAL: Abdomen soft, non-tender, nondistended. No hepato-splenomegaly , or palpable masses. No guarding. MUSCULOSKELETAL: Right leg with Orthotics in place. NEUROLOGICAL: Awake and alert. Cranial nerves II through XII intact. Motor and sensory grossly within normal limits. Five out of 5 muscle strength in all muscle groups. Normal speech. Imaging Last Impressions Knee X-Ray 05/19/17 1313 Signed Impressions: Service Date/Time: Friday, May 19, 2017 14:12 - CONCLUSION: Expected findings are present following recent right total knee arthroplasty. Mango Duke MD Assessment and Plan Assessment and Plan 1. OA of the right knee status post right Knee arthroplasty 2. Hypertension continue Home medicines 3. Hyperlipidemia continue home medicines 4. Depression/Anxiety disorder stable at this time continue home medicines 5. Prostate cancer with status post radiation therapy 6. Urolithiasis by history 7. Obesity strongly recommended diet and exercise 8. Prior tobacco dependence will give some Bronchodilator, Mucolytic, incentive spirometry, early ambulation 9. Alcohol abuse on daily basis start CIWA protocol and follow DVT prophylaxis as per Orthopedic Surgery. Code Status Full code. Discussed Condition With Patient and nurse. Gary Dias MD May 19, 2017 2:33 pm
--- NOTE | 2017-05-19 14:42 | RADRPT ---
EXAM DATE/TIME: 05/19/2017 14:12 [facility] COMPARISON: No previous studies available for comparison. INDICATIONS : Post-op total right knee arthroplasty. MEDICAL HISTORY : Hypertension. SURGICAL HISTORY : Total knee replacement, left. Arthroscopy. Left shoulder surgery. ENCOUNTER: Initial ACUITY: 1 day PAIN SCORE: Non-responsive. LOCATION: Right knee FINDINGS: AP and lateral views of the right knee demonstrate changes consistent with recent total knee arthropl asty with metallic hardware in place in the distal femur and proximal tibia. There is a radiolucent p atellar component. Skin cosmo are present anteriorly. There is soft tissue gas present, as expected . CONCLUSION: Expected findings are present following recent right total knee arthroplasty. Mango Duke MD on May 19, 2017 at 14:40 Board Certified Radiologist. This report was verified electronically.
[2017-05-19] MEDS ORDERED: *ENALAPRILAT 1.25 MG/ML VIAL PERIprocedural Use ONLY ONE (15:35)
--- NOTE | 2017-05-19 15:40 | HHI.DCPOC ---
Discharge Care Plan Diagnosis: (1) Status post total knee replacement, right (2) Primary localized osteoarthrosis, lower leg Your Health Problems Are: Difficulty with ADL Goals to Promote Your Health * To prevent worsening of your condition and complications * To maintain your health at the optimal level Directions to Meet Your Goals Take your medications as prescribed Follow your dietary instruction Follow activity as directed Keep your appointments as scheduled Take your immunizations and boosters as scheduled If your symptoms worsen call your PCP, if no PCP go to Urgent Care Center or Emergency Room Smoking is Dangerous to Your Health. Avoid second hand smoke Call the 24-hour hour crisis hotline for domestic abuse at Mario Hensley May 19, 2017 15:40
--- NOTE | 2017-05-19 15:41 | HHI.FF ---
Face to Face Verification Diagnosis: (1) Status post total knee replacement, right (2) Primary localized osteoarthrosis, lower leg Physical Therapy Gait training, Transfer training, bed to chair Knee: Total knee Right LE Weight Bearing: WB as tolerated Right LE Range of Motion: Active ROM Nursing Nursing: Lj teaching, Dressing changes Dressing Changes: Daily dressing change I have seen patient Mango Santos Jr Keith on 05/19/17. My clinical findings support the need for the requested home health care services because: Limited ability to care for self High risk of falls I certify that my clinical findings support that this patient is homebound because: Post-op weakness Unsteady gait/balance Mario Hensley May 19, 2017 15:41
[2017-05-19] MEDS ORDERED: COMMODE 3-IN-11 MIS (15:43)
[2017-05-19] MEDS ORDERED: WALKER WHEELS/F1 MIS (15:43)
[2017-05-19] MEDS ORDERED: CPMMACHINE (15:43)
[2017-05-19 16:30] VITALS: BP 169/83; PULSE 85; RESP 18; TEMP 98.5; O2SAT 92
[2017-05-19] MEDS ORDERED: THIAMINE INJ 100 MG in SODIUM CHLORIDE 0.9% INJ 100 ML IV SCH (17:00)
[2017-05-19] MEDS: ONDANSETRON HCL 4 MG/2 ML VIAL IVP PRN ×2 (17:36→23:03)
[2017-05-19] MEDS ORDERED: MULTIVITAMIN INJ 10 ML, FOLIC ACID INJ 1 MG in SODIUM CHLORID 0.9% 500 ML INJ 500 ML IV SCH (18:00)
[2017-05-19 20:18] VITALS: O2SAT 92
[2017-05-19] MEDS: RESP: ALBUTEROL 2.5 MG/IPRATROPIUM 0.5 MG NEB (SCH) NEB (20:18)
--- NOTE | 2017-05-19 20:39 | EKG ---
Date Performed: 05/19/2017 Time Performed: 08:23:22 PTAGE: 77 years EKG: Sinus rhythm NORMAL ECG PREVIOUS TRACING : 02/05/2016 09.28 Compared to prior tracing no significant change DOCTOR: Gaetano Garcia Interpretating Date/Time 05/19/2017 20:38:24
[2017-05-19 20:40] VITALS: BP 150/78; PULSE 85; RESP 19; TEMP 96.8; O2SAT 98
[2017-05-19] MEDS ORDERED: ZOLPIDEM TARTRATE 10 MG TAB PO PRN (21:00)
[2017-05-19] MEDS ORDERED: CITALOPRAM HYDROBROMIDE 20 MG TAB PO SCH (21:00)
[2017-05-19] MEDS ORDERED: PRAVASTATIN SOD 20 MG TAB PO SCH (21:00)
[2017-05-19] MEDS ORDERED: ALLOPURINOL 100 MG TAB PO SCH (21:00)
[2017-05-19] MEDS: guaiFENesin E.R. 600 MG TAB PO SCH (22:57)
[2017-05-19] MEDS: CARVEDILOL 6.25 MG TAB PO SCH (22:57)
[2017-05-19] MEDS: SODIUM CHLORIDE 0.9% FLUSH 5 ML FLUSH IVF SCH (22:59)
[2017-05-19 23:45] VITALS: BP 135/75; PULSE 86; RESP 18; TEMP 97.5; O2SAT 95
[2017-05-20 03:55] VITALS: BP 134/68; PULSE 80; RESP 18; TEMP 97.6; O2SAT 99
[2017-05-20] MEDS: RESP: ALBUTEROL 2.5 MG/IPRATROPIUM 0.5 MG NEB (SCH) NEB ×2 (04:02→08:18)
[2017-05-20 04:06] VITALS: O2SAT 99
[2017-05-20 07:58] LABS: HEMATOCRIT 36.5 % (39.0-51.0); MEAN CELL VOLUME 99.1 FL (80.0-100.0); MEAN CORPUSCULAR HEMOGLOBIN 31.7 PG (27.0-34.0); PLATELET COUNT 194 TH/MM3 (150-450); RED BLOOD COUNT 3.69 MIL/MM3 (4.50-5.90); RED CELL DISTRIBUTION WIDTH 13.7 % (11.6-17.2); REVIEW FLAG FINAL; WHITE BLOOD COUNT 11.9 TH/MM3 (4.0-11.0)
[2017-05-20 08:00] VITALS: BP 147/73; PULSE 80; RESP 18; TEMP 97.3; O2SAT 97
[2017-05-20 08:23] LABS: MAGNESIUM 1.9 MG/DL (1.5-2.5); POTASSIUM 4.5 MEQ/L (3.5-5.1)
--- NOTE | 2017-05-20 08:51 | HHI.PR ---
Subjective Remarks This is a pleasant 77 y/o Male who was brought in by his Primary Orthopedic outreach specialist doctor Valentino Rogers for Right Total Knee arthroplasty, as we know he has Hypertension, Hyperlipidemia, Depression and anxiety disorder Multiple Orthopedic issues also Lumbar DJD, Gout. Seen in Recovery room status post surgery. 05/20: Seen in his bedroom no complaint, no nausea, vomit or diarrhea, continue present care as per Orthopedic Surgery okay to discharge from Medicine standpoint. Objective Vital Signs Date Time Temp Pulse Resp B/P (MAP) Pulse Ox O2 Delivery O2 Flow Rate FiO2 05/20/17 04:06 99 05/20/17 03:55 97.6 80 18 134/68 (90) 99 05/19/17 23:57 18 05/19/17 23:45 97.5 86 18 135/75 (95) 95 05/19/17 20:40 96.8 85 19 150/78 (102) 98 05/19/17 20:18 92 21 05/19/17 16:30 98.5 85 18 169/83 (111) 92 05/19/17 16:16 83 16 154/73 (100) 94 Room Air 05/19/17 16:00 98.2 82 16 171/77 (108) 95 Room Air 05/19/17 15:45 82 16 175/66 (102) 96 Nasal Cannula 2 05/19/17 15:00 84 16 171/85 (113) 97 Nasal Cannula 2 05/19/17 14:45 80 16 166/81 (109) 98 Nasal Cannula 2 05/19/17 14:30 82 16 181/91 (121) 99 Nasal Cannula 2 05/19/17 14:15 82 16 180/88 (118) 99 Nasal Cannula 2 05/19/17 14:00 82 16 181/91 (121) 99 Nasal Cannula 2 05/19/17 13:45 97.6 86 16 185/93 (123) 98 Nasal Cannula 2 I/O 05/19/17 05/19/17 05/19/17 05/20/17 05/20/17 05/20/17 07:00 15:00 23:00 07:00 15:00 23:00 Intake Total 1970 ml 341 ml 610.2 ml 240 ml Output Total 50 ml 150 ml 150 ml Balance 1920 ml 191 ml 610.2 ml 90 ml Intake Oral 240 ml 240 ml IV Total 270 ml 101 ml 610.2 ml Other 1700 ml Output Urine Total 150 ml 150 ml Estimated Blood Loss 50 ml # Voids 1 # Bowel Movements 0 0 Result Diagram: 05/20/17 0706 05/20/17 0706 Imaging Last Impressions Knee X-Ray 05/19/17 1313 Signed Impressions: Service Date/Time: Friday, May 19, 2017 14:12 - CONCLUSION: Expected findings are present following recent right total knee arthroplasty. Mango Duke MD Procedures Right Total Knee Arthroplasty Other Results Laboratory Tests Test 05/20/17 07:06 White Blood Count 11.9 TH/MM3 Red Blood Count 3.69 MIL/MM3 Hemoglobin 11.7 GM/DL Hematocrit 36.5 % Mean Corpuscular Volume 99.1 FL Mean Corpuscular Hemoglobin 31.7 PG Mean Corpuscular Hemoglobin Concent 32.0 % Red Cell Distribution Width 13.7 % Platelet Count 194 TH/MM3 Mean Platelet Volume 7.9 FL Blood Urea Nitrogen 20 MG/DL Creatinine 1.52 MG/DL Random Glucose 119 MG/DL Calcium Level 8.1 MG/DL Magnesium Level 1.9 MG/DL Sodium Level 134 MEQ/L Potassium Level 4.5 MEQ/L Chloride Level 100 MEQ/L Carbon Dioxide Level 26.0 MEQ/L Anion Gap 8 MEQ/L Estimat Glomerular Filtration Rate 45 ML/MIN Objective Remarks GENERAL: Obesity, well-developed patient, in no apparent distress. SKIN: No rashes, ecchymoses or lesions. Cool and dry. HEAD: Atraumatic. Normocephalic. No temporal or scalp tenderness. EYES: Pupils equal round and reactive. Extraocular motions intact. No scleral icterus. No injection or drainage. ENT: Nose without bleeding, purulent drainage or septal hematoma. Throat without erythema, tonsillar hypertrophy or exudate. Uvula midline. Airway patent. NECK: Trachea midline. No JVD or lymphadenopathy. Supple, nontender, no meningeal signs. CARDIOVASCULAR: Regular rate and rhythm without murmurs, gallops, or rubs. RESPIRATORY: Clear to auscultation. Breath sounds equal bilaterally. No wheezes , rales, or rhonchi. GASTROINTESTINAL: Abdomen soft, non-tender, nondistended. No hepato-splenomegaly , or palpable masses. No guarding. MUSCULOSKELETAL: Right leg with Orthotics in place. NEUROLOGICAL: Awake and alert. Cranial nerves II through XII intact. Motor and sensory grossly within normal limits. Five out of 5 muscle strength in all muscle groups. Normal speech. Medications and IVs Current Medications Medications (Trade) Dose Ordered Sig/Denise Route Start Time Stop Time Status Last Admin Lactated Ringer's 1,000 ml @ 30 mls/hr Q24H PRN IV 05/19/17 08:15 05/22/17 08:14 05/19/17 08:30 Sodium Chloride 500 ml @ 30 mls/hr [id number] PRN IV 05/19/17 08:15 05/22/17 08:14 (Lopressor) 25 mg FAMILY PHYSICIAN PRN PO 05/19/17 08:15 05/22/17 08:14 (Betadine 5% Antisepsis Kit) 1 applic FAMILY PHYSICIAN PRN EACH NARE 05/19/17 08:15 05/22/17 08:14 05/19/17 08:40 (Chlorhexidine 2% Cloth) 3 pack FAMILY PHYSICIAN PRN TOPICAL 05/19/17 08:15 05/22/17 08:14 05/19/17 08:00 (NovoLIN R INJ) See Protocol Table ... FAMILY PHYSICIAN PRN SQ 05/19/17 08:15 05/22/17 08:14 (Betadine 7.5% Scrub) 1 applic ONCE TOPICAL 05/19/17 08:15 05/22/17 08:14 05/19/17 08:40 Cefazolin Sodium/ Dextrose 50 ml @ 100 mls/hr FAMILY PHYSICIAN IV 05/19/17 08:15 05/22/17 08:14 05/19/17 09:43 Vancomycin HCl 1000 mg/Sodium Chloride 250 ml @ 250 mls/hr FAMILY PHYSICIAN IV 05/19/17 08:15 05/22/17 08:14 05/19/17 10:04 Tranexamic Acid 1120 mg/Sodium Chloride 111.2 ml @ 200 mls/hr ONCE IV 05/19/17 09:00 05/20/17 15:00 Ropivacaine 24.63 ml/Ketorolac Tromethamine 30 mg/Epinephrine HCl 0.5 mg/ Clonidine 80 mcg/ Sodium Chloride 100 ml @ 200 mls/hr ONCE P-ARTICULR 05/19/17 09:00 05/20/17 15:00 (Zyloprim) 50 mg HS PO 05/19/17 21:00 05/19/17 22:58 (Coreg) 6.25 mg BID PO 05/19/17 21:00 05/19/17 22:57 (CeleXA) 10 mg HS PO 05/19/17 21:00 05/19/17 22:58 (Pravachol) 20 mg HS PO 05/19/17 21:00 05/19/17 22:58 (Ambien) 10 mg HS PRN PO 05/19/17 21:00 Patient Own Medication PT OWN MED: POTASS... EVERY OTHER DAY PO 05/21/17 09:00 Future Hold Sodium Chloride 1,000 ml @ 100 mls/hr Q10H IV 05/19/17 14:00 05/19/17 14:00 (NS Flush) 2 ml UNSCH PRN IVF 05/19/17 13:15 (NS Flush) 2 ml BID IVF 05/19/17 21:00 (Decadron Inj) 10 mg ONCE ONCE IV 05/20/17 14:30 05/20/17 14:31 (Lovenox Inj) 40 mg Q24H SQ 05/20/17 13:00 05/29/17 13:01 ([place] 5-325 Mg) 1 tab Q4H PRN PO 05/19/17 13:15 ([place] 5-325 Mg) 2 tab Q4H PRN PO 05/19/17 13:15 05/19/17 22:57 (Theragran M Tab) 1 tab BID PO 05/20/17 21:00 07/19/17 20:59 (Zofran Inj) 4 mg Q6H PRN IVP 05/19/17 13:15 05/19/17 23:03 (Colace) 100 mg BID PO 05/20/17 21:00 (Mag-Al Plus Susp Liq) 30 ml Q6H PRN PO 05/19/17 13:15 (Dulcolax Supp) 10 mg DAILY PRN RECTAL 05/19/17 13:15 (Milk Of Magnesia Liq) 30 ml DAILY PRN PO 05/19/17 13:15 (Narcan Inj) 0.4 mg UNSCH PRN IV 05/19/17 13:15 (Benadryl Inj) 25 mg Q6H PRN IV 05/19/17 13:15 (Morphine Inj) 2 mg Q3H PRN IV PUSH 05/19/17 13:15 Miscellaneous Information ALL NURSING DEPARTME... UNSCH PRN .XX 05/19/17 13:45 05/20/17 13:44 (Duoneb Neb) 1 ampule Q6HR NEB NEB 05/19/17 16:00 05/20/17 04:02 (Mucinex Er) 600 mg BID PO 05/19/17 21:00 05/19/17 22:57 Multivitamins 10 ml/Folic Acid 1 mg/Sodium Chloride 510.2 ml @ 125 mls/hr Q24H IV 05/19/17 18:00 05/24/17 17:59 05/19/17 19:38 Thiamine HCl 100 mg/Sodium Chloride 101 ml @ 100 mls/hr Q24H IV 05/19/17 17:00 05/22/17 16:59 05/19/17 19:38 (Vitamin B1) 100 mg DAILY PO 05/23/17 09:00 A/P Assessment and Plan 1. OA of the right knee status post right Knee arthroplasty POD#1 2. Hypertension controlled. 3. Hyperlipidemia continue home medicines 4. Depression/Anxiety disorder stable at this time continue home medicines 5. Prostate cancer with status post radiation therapy 6. Urolithiasis by history 7. Obesity strongly recommended diet and exercise 8. Prior tobacco dependence will give some Bronchodilator, Mucolytic, incentive spirometry, early ambulation 9. Alcohol abuse on daily basis start CIWA protocol and follow 10. CKD III stable. DVT prophylaxis as per Orthopedic Surgery. Code Status Full code. Discussed Condition With Patient all questions answered to the best of my abilities. Discharge Planning Clear for discharge from Medicine standpoint. Gary Dias MD May 20, 2017 08:50
[2017-05-20] MEDS: SODIUM CHLORIDE 0.9% FLUSH 5 ML FLUSH IVF SCH (09:00)
[2017-05-20] MEDS: CARVEDILOL 6.25 MG TAB PO SCH (09:32)
[2017-05-20] MEDS: guaiFENesin E.R. 600 MG TAB PO SCH (09:32)
[2017-05-20 12:00] VITALS: BP 144/76; PULSE 85; RESP 18; TEMP 98.9; O2SAT 94
--- NOTE | 2017-05-20 12:25 | PD.ORT.PN ---
Subjective Post Op Day #: 1 Subjective Remarks The patient is resting comfortably in bed in NAD. Patient reports only mild knee pain. Patient reports he wants to go home today with home health. Objective Vitals Vital Signs Date Time Temp Pulse Resp B/P (MAP) Pulse Ox O2 Delivery O2 Flow Rate FiO2 05/20/17 08:00 97.3 80 18 147/73 (97) 97 05/20/17 04:06 99 05/20/17 03:55 97.6 80 18 134/68 (90) 99 05/19/17 23:57 18 05/19/17 23:45 97.5 86 18 135/75 (95) 95 05/19/17 20:40 96.8 85 19 150/78 (102) 98 05/19/17 20:18 92 21 05/19/17 16:30 98.5 85 18 169/83 (111) 92 05/19/17 16:16 83 16 154/73 (100) 94 Room Air 05/19/17 16:00 98.2 82 16 171/77 (108) 95 Room Air 05/19/17 15:45 82 16 175/66 (102) 96 Nasal Cannula 2 05/19/17 15:00 84 16 171/85 (113) 97 Nasal Cannula 2 05/19/17 14:45 80 16 166/81 (109) 98 Nasal Cannula 2 05/19/17 14:30 82 16 181/91 (121) 99 Nasal Cannula 2 05/19/17 14:15 82 16 180/88 (118) 99 Nasal Cannula 2 05/19/17 14:00 82 16 181/91 (121) 99 Nasal Cannula 2 05/19/17 13:45 97.6 86 16 185/93 (123) 98 Nasal Cannula 2 I/O 05/19/17 05/19/17 05/19/17 05/20/17 05/20/17 05/20/17 07:00 15:00 23:00 07:00 15:00 23:00 Intake Total 1970 ml 341 ml 610.2 ml 240 ml Output Total 50 ml 150 ml 150 ml Balance 1920 ml 191 ml 610.2 ml 90 ml Intake Oral 240 ml 240 ml IV Total 270 ml 101 ml 610.2 ml Other 1700 ml Output Urine Total 150 ml 150 ml Estimated Blood Loss 50 ml # Voids 1 # Bowel Movements 0 0 Result Diagram: 05/20/17 0706 05/20/17 0706 Imaging Last 24 hours Impressions Knee X-Ray 05/19/17 1313 Signed Impressions: Service Date/Time: Friday, May 19, 2017 14:12 - CONCLUSION: Expected findings are present following recent right total knee arthroplasty. Mango Duke MD Procedures Right TKA Objective Remarks Dressings changed with no drainage. Incision is well approximated. No redness or s/s of infection. Calf is soft and nontender. EHL/TA/G intact. 2+ pedal pulse. + SILT. Assessment & Plan Ortho Post Op Day #: 1 Problem List: Assessment and Plan POD #1: Right TKA 1. WBAT RLE 2. Lovenox followed by ASA for DVT prophylaxis 3. Ice for Right knee PRN 4. Stable for discharge home with home health today 5. F/U with Dr. Rogers or Dimas VALENTE as previously scheduled. Mario Hensley May 20, 2017 12:25
[2017-05-20] MEDS ORDERED: ENOXAPARIN SODIUM 40 MG/0.4 ML SYRINGE SQ SCH (13:00)
[2017-05-20] MEDS ORDERED: DEXAMETHASONE SOD PHOS 20 MG/5 ML VIAL IV ONE (14:30)
--- NOTE | 2017-05-20 20:36 | HHI.DS ---
Discharge Summary Admission Date May 19, 2017 at 07:39 Discharge Date: May 20, 2017 Admitting Diagnosis Primary OA of the lower leg Status post total knee replacement, right Diagnosis: (1) Primary localized osteoarthrosis, lower leg Diagnosis: Principal ICD Codes: M17.10 - Unilateral primary osteoarthritis, unspecified knee Status: Acute (2) Status post total knee replacement, right Diagnosis: Principal ICD Codes: Z96.651 - Presence of right artificial knee joint Procedures Right TKA Brief History This is a 77 year old male patient with severe OA of the right knee CBC/BMP: 05/20/17 0706 05/20/17 0706 Significant Findings Laboratory Tests Test 05/20/17 07:06 White Blood Count 11.9 TH/MM3 (4.0-11.0) Red Blood Count 3.69 MIL/MM3 (4.50-5.90) Hemoglobin 11.7 GM/DL (13.0-17.0) Hematocrit 36.5 % (39.0-51.0) Blood Urea Nitrogen 20 MG/DL (7-18) Creatinine 1.52 MG/DL (0.60-1.30) Random Glucose 119 MG/DL (74-106) Calcium Level 8.1 MG/DL (8.5-10.1) Sodium Level 134 MEQ/L (136-145) Estimat Glomerular Filtration Rate 45 ML/MIN (>89) PE at Discharge Dressings changed with no drainage. Incision is well approximated. No redness or s/s of infection. Calf is soft and nontender. EHL/TA/G intact. 2+ pedal pulse. + SILT. Hospital Course The patient was admitted to the hospital for severe OA of the right knee to have a right TKA. The patient's surgery went well without complication. The patient is WBAT on the LLE. The patient was placed on Lovenox followed by ASA for DVT prophylaxis. The patient is on a regular diet. The patient was discharged home with home health and will f/u with Dr. Rogers or SIDRA James as previously scheduled. 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 Commode 3-in-1 (Commode 3-in-1) 1 Mis Mis EA .ROUTE DIRECTED, #1 0 Refills CPM-Continuous Passive Motion Machine (CPM-Continuous Passive Motion Machine) 1 Ea Device EA .ROUTE DIRECTED, #1 0 Refills Enoxaparin Inj (Lovenox Inj) 40 Mg/0.4 Ml Syr 40 MG SQ DAILY for Blood Clot Prevention, #10 SYRINGE 0 Refills Start Aspirin after Lovenox is completed. Hydrocodone-Acetaminophen ([place]) 5-325 mg Tab 1-2 TAB PO Q4H PRN for PAIN, #60 TAB 0 Refills Walker with Front Wheels (Walker with Front Wheels) 1 Mis Mis EA .ROUTE DIRECTED, #1 0 Refills Continued Medications: Allopurinol (Allopurinol) 100 Mg Tab 50 MG PO HS for Gout, #30 TAB 0 Refills Carvedilol (Carvedilol) 6.25 Mg Tab 6.25 MG PO BID, #60 TAB 0 Refills Citalopram (Citalopram) 10 Mg Tab 10 MG PO HS for Control Depression, #30 TAB 0 Refills Lovastatin (Lovastatin) 20 Mg Tab 20 MG PO HS for Cholesterol Management, #30 TAB 0 Refills Potassium Citrate ER (Potassium Citrate ER) 15 Meq Tab 10 MEQ PO EVERY OTHER DAY Zolpidem (Zolpidem) 10 Mg Tab 10 MG PO HS PRN for INSOMNIA, TAB 0 Refills Discontinued Medications: Aspirin DR (Aspirin 81) 81 Mg Tabdr 81 MG PO DAILY, TAB 0 Refills Mario Hensley May 20, 2017 20:36
[2017-05-20] MEDS ORDERED: MULTIVITAMINS/MINERALS THERAPEUTIC TAB PO SCH (21:00)
[2017-05-20] MEDS ORDERED: DOCUSATE SODIUM 100 MG CAP PO SCH (21:00)
[2017-05-21] MEDS ORDERED: POTASSIUM CITRATE 10 MEQ PO SCH (09:00)
[2017-05-23] MEDS ORDERED: THIAMINE HCL 100 MG TAB PO SCH (09:00)
== END 2017-05-20 13:18 | disposition home health service (06) | DRG 470 ==
LOC: HSDI 05-19 07:39 → N06B 05-19 16:27
PROVIDERS: ADMIT Orthopaedic Surgery; ATTEND Orthopaedic Surgery
PROC: 3E0T3CZ (ICD-10-PCS; 2017-05-19)
PROC: 0SRC0J9 Replacement of Right Knee Joint with Synthetic Substitute, Cemented, Open Approach (ICD-10-PCS; principal; 2017-05-19 11:15)
DX: M17.11 Unilateral primary osteoarthritis, right knee (principal); N18.3 Chronic kidney disease, stage 3 (moderate); I12.9 Hypertensive chronic kidney disease with stage 1 through stage 4 chronic kidney disease, or unspecified chronic kidney disease; E78.5 Hyperlipidemia, unspecified; Z85.46 Personal history of malignant neoplasm of prostate; Z92.3 Personal history of irradiation; Z96.652 Presence of left artificial knee joint; M10.9 Gout, unspecified; F17.200 Nicotine dependence, unspecified, uncomplicated; F41.8 Other specified anxiety disorders; Z87.442 Personal history of urinary calculi
CPT/HCPCS: 73560; 80048; 83735; 85027; 86850; 86900; 86901; 93005; 94640; 94664; C1776; C9290; J0131; J0690; J0735; J1100; J1580; J1650; J1885; J2250; J2270; J2370; J2405; J2710; J2795; J3010; J3370; J3411; J7030; J7040; J7050; J7120; L1830